=== PATIENT | male | born 1990 | race African-American/Black ===

== ENCOUNTER 2022-12-12 14:10 | Emergency (ER) | payer SELFPAY ==
[2022-12-12] MEDS ORDERED: predniSONE 20 MG Tab PO ONE (14:40)
[2022-12-12] MEDS ORDERED: Albuterol/Ipratropium 3.0-0.5 MG/3 ML Neb Soln NEB ONE (14:40)
== END 2022-12-12 16:20 | disposition home or self-care (01) ==
LOC: MW.ED 14:10
DX: J45.909 Unspecified asthma, uncomplicated (principal)
CPT/HCPCS: 99284; A9270; 99283; J7620-GY